=== PATIENT | female | born 1940 | race African-American/Black ===

== ENCOUNTER 2018-11-04 06:22 | Inpatient (IN) ==
[2018-11-04] MEDS ORDERED: diphenhydrAMINE CAP 25 MG CAPSULE PO ONE (09:07)
[2018-11-04] MEDS ORDERED: MAGNESIUM SULF RIDER 2 GM in PREMIX 1 EACH IV PRN (09:07)
[2018-11-04] MEDS ORDERED: ASPIRIN 325 MG TABLET PO ONE (09:07)
[2018-11-04] MEDS ORDERED: DIAZEPAM 5 MG TABLET PO ONE (09:07)
[2018-11-04] MEDS ORDERED: POTASSIUM CHLORIDE RIDER 10 MEQ in PREMIX 1 EACH IV PRN (09:07)
[2018-11-04] MEDS: SODIUM CHLORIDE 0.9% 1,000 ML IV SCH (09:18)
[2018-11-04] MEDS ORDERED: VERAPAMIL 5 MG/2 ML VIAL ONE ×2 (10:57→12:09)
[2018-11-04] MEDS ORDERED: HEPARIN/NACL 0.9% 2 UNITS/ML 1,000 ML IV ONE (10:57)
[2018-11-04] MEDS ORDERED: NITROGLYCERIN DRIP 50 MG/250 ML BOTTLE IV ONE (10:57)
[2018-11-04] MEDS ORDERED: LIDOCAINE 1% 20 ML VIAL ONE (10:57)
[2018-11-04] MEDS ORDERED: HYDROmorphone 2 MG/1 ML VIAL ONE (11:17)
[2018-11-04] MEDS ORDERED: MIDAZOLAM 2 MG/2 ML VIAL ONE (11:17)
[2018-11-04] MEDS ORDERED: ENOXAPARIN 30 MG/0.3 ML SYRINGE ONE (12:09)
[2018-11-04] MEDS ORDERED: ACETAMINOPHEN 325 MG TABLET PO PRN (14:56)
[2018-11-04] MEDS ORDERED: ZALEPLON 5 MG CAPSULE PO PRN (14:56)
[2018-11-04] MEDS ORDERED: BISACODYL 5 MG TABLET PO PRN (14:56)
[2018-11-04] MEDS ORDERED: POTASSIUM CHLORIDE 20 MEQ TABLET PO PRN (14:56)
[2018-11-04] MEDS ORDERED: MAGNESIUM SULF RIDER 4 GM in PREMIX 1 EACH IV PRN (14:56)
[2018-11-04] MEDS ORDERED: ONDANSETRON 4 MG/2 ML VIAL IV PRN (14:56)
[2018-11-04] MEDS ORDERED: HEPARIN DRIP 25,000 UNITS/500 ML PREMIX IV ONE (15:28)
[2018-11-04] MEDS: HEPARIN DRIP 25,000 UNITS/500 ML PREMIX IV SCH (15:45)
[2018-11-04] MEDS: CILOSTAZOL 100 MG TABLET PO SCH (21:42)
[2018-11-04] MEDS: MAGNESIUM CHLORIDE 64 MG TABLET PO SCH (21:43)
[2018-11-04] MEDS: ASCORBIC ACID 500 MG TABLET PO SCH (21:44)
[2018-11-04] MEDS: glipiZIDE 5 MG TABLET PO SCH (21:44)
[2018-11-04 21:47] LABS: PT Patient Result 11.1 SECS
[2018-11-04 22:04] LABS: Partial Thromboplastin Time 46.2 SECS (0-40)
[2018-11-05 05:55] LABS: Basophils % 0.5 % (0.0-0.8); Eosinophils # 0.2 10*3/uL (0.0-0.87); Eosinophils % 2.5 % (0.00-10.9); Hematocrit 26.4 VOL% (35.7-47.0); Hemoglobin 7.9 GM/DL (12.0-16.0); Immature Granulocytes % 0.3 %; Immature Granulocytes Absolute 0.02 #; Lymphocytes # 1.1 10*3/uL (1.4-4.0); Lymphocytes % 17.5 % (21.3-54.2); Mean Corpuscular HGB Conc 29.9 GM/DL (32-36); Mean Corpuscular Volume 95.7 FL (87-102); Mean Platelet Volume 12.8 FL (9.6-12.0); Monocytes % 9.4 % (1.7-12.7); Neutrophils % 69.8 % (38.7-73.9); Platelet Count 230 T/CUMM (130-400); Red Blood Count 2.76 MC/CUMM (3.8-5.5); Red Cell Distribution Width 14.7 % (9.3-17.3); White Blood Count 6.1 T/CUMM (4-12)
[2018-11-05 06:03] LABS: PT Patient Result 10.9 SECS
[2018-11-05 06:15] LABS: Partial Thromboplastin Time 59.9 SECS (0-40)
[2018-11-05 06:46] LABS: Albumin 2.9 G/DL (3.4-5.0); Bilirubin,Total 0.4 MG/DL (0.2-1.0); Calcium 8.8 MG/DL (8.5-10.1); Osmolality,Calculated 287.8 MOS/KG (273-304); Risk Ratio 1.79; Total Protein 6.4 G/DL (6.4-8.3)
[2018-11-05] MEDS: metFORMIN 500 MG TABLET PO SCH ×3 (08:52→17:35)
[2018-11-05] MEDS: CHOLECALCIFEROL 400 UNIT TABLET PO SCH (08:52)
[2018-11-05] MEDS: MAGNESIUM CHLORIDE 64 MG TABLET PO SCH ×3 (08:52→20:50)
[2018-11-05] MEDS: ASPIRIN EC 81 MG TABLET PO SCH (08:52)
[2018-11-05] MEDS: sitaGLIPtin 100 MG TABLET PO SCH (08:53)
[2018-11-05] MEDS: CALCIUM (CARBONATE) 600 MG TABLET PO SCH (08:53)
[2018-11-05] MEDS: ROSUVASTATIN 10 MG TABLET PO SCH (08:53)
[2018-11-05] MEDS: ASCORBIC ACID 500 MG TABLET PO SCH ×2 (08:53→20:50)
[2018-11-05] MEDS: FERROUS SULFATE 325 MG TABLET PO SCH (08:53)
[2018-11-05] MEDS: LISINOPRIL 20 MG TABLET PO SCH (08:53)
[2018-11-05] MEDS: PANTOPRAZOLE 40 MG TABLET PO SCH (08:54)
[2018-11-05] MEDS: glipiZIDE 5 MG TABLET PO SCH ×2 (08:54→20:49)
[2018-11-05] MEDS: CILOSTAZOL 100 MG TABLET PO SCH ×2 (08:54→20:50)
[2018-11-05] MEDS: POTASSIUM CHLORIDE 10 MEQ TABLET PO SCH (08:54)
[2018-11-05] MEDS ORDERED: NON-FORMULARY MEDICATION (Omeprazole 40 MG) PO SCH (09:00)
[2018-11-05] MEDS ORDERED: amLODIPine 5 MG TABLET PO SCH (09:00)
[2018-11-05] MEDS ORDERED: METOPROLOL SUCCINATE XL 100 MG TABLET PO SCH (09:00)
[2018-11-05 10:24] LABS: PT Patient Result 10.7 SECS
[2018-11-05 10:34] LABS: Partial Thromboplastin Time 70.7 SECS (0-40)
[2018-11-05] MEDS ORDERED: MAGNESIUM SULF INJ 3 GM in SODIUM CHLORIDE 0.9% 100 ML IV ONE (11:33)
[2018-11-05] MEDS: SODIUM CHLORIDE 0.9% 1,000 ML IV SCH (13:17)
[2018-11-05 15:55] LABS: Hematocrit 29.2 VOL% (35.7-47.0); Hemoglobin 8.8 GM/DL (12.0-16.0)
[2018-11-05] MEDS: INSULIN LISPRO 100 UNIT/ML SUBCUT SCH ×2 (17:29→20:50)
[2018-11-05] MEDS: HEPARIN DRIP 25,000 UNITS/500 ML PREMIX IV SCH (17:34)
[2018-11-05] MEDS: CARVEDILOL 25 MG TABLET PO SCH (20:49)
[2018-11-06 04:37] LABS: Basophils % 0.3 % (0.0-0.8); Eosinophils # 0.2 10*3/uL (0.0-0.87); Eosinophils % 2.7 % (0.00-10.9); Hematocrit 26.1 VOL% (35.7-47.0); Immature Granulocytes % 0.3 %; Immature Granulocytes Absolute 0.02 #; Lymphocytes # 0.8 10*3/uL (1.4-4.0); Lymphocytes % 12.2 % (21.3-54.2); Mean Corpuscular HGB Conc 30.7 GM/DL (32-36); Mean Corpuscular Volume 94.2 FL (87-102); Mean Platelet Volume 13.3 FL (9.6-12.0); Monocytes % 11.3 % (1.7-12.7); Neutrophils % 73.2 % (38.7-73.9); Platelet Count 243 T/CUMM (130-400); Red Blood Count 2.77 MC/CUMM (3.8-5.5); Red Cell Distribution Width 14.8 % (9.3-17.3); White Blood Count 6.6 T/CUMM (4-12)
[2018-11-06 04:57] LABS: Calcium 8.7 MG/DL (8.5-10.1)
[2018-11-06] MEDS: CARVEDILOL 25 MG TABLET PO SCH ×2 (09:06→21:40)
[2018-11-06] MEDS: POTASSIUM CHLORIDE 10 MEQ TABLET PO SCH (09:06)
[2018-11-06] MEDS: MAGNESIUM CHLORIDE 64 MG TABLET PO SCH ×3 (09:06→21:41)
[2018-11-06] MEDS: metFORMIN 500 MG TABLET PO SCH ×2 (09:06→15:59)
[2018-11-06] MEDS: LISINOPRIL 20 MG TABLET PO SCH (09:07)
[2018-11-06] MEDS: CILOSTAZOL 100 MG TABLET PO SCH (09:07)
[2018-11-06] MEDS: ASPIRIN EC 81 MG TABLET PO SCH (09:07)
[2018-11-06] MEDS: ROSUVASTATIN 10 MG TABLET PO SCH (09:07)
[2018-11-06] MEDS: ASCORBIC ACID 500 MG TABLET PO SCH ×2 (09:07→21:38)
[2018-11-06] MEDS: CHOLECALCIFEROL 400 UNIT TABLET PO SCH (09:07)
[2018-11-06] MEDS: CALCIUM (CARBONATE) 600 MG TABLET PO SCH (09:07)
[2018-11-06] MEDS: glipiZIDE 5 MG TABLET PO SCH ×2 (09:08→21:38)
[2018-11-06] MEDS: sitaGLIPtin 100 MG TABLET PO SCH (09:08)
[2018-11-06] MEDS: FERROUS SULFATE 325 MG TABLET PO SCH (09:08)
[2018-11-06] MEDS: PANTOPRAZOLE 40 MG TABLET PO SCH (09:08)
[2018-11-06] MEDS: INSULIN LISPRO 100 UNIT/ML SUBCUT SCH ×5 (09:08→21:44)
[2018-11-06] MEDS: SODIUM CHLORIDE 0.9% 1,000 ML IV SCH (16:26)
[2018-11-06] MEDS: HEPARIN DRIP 25,000 UNITS/500 ML PREMIX IV SCH (18:37)
[2018-11-06] MEDS: APIXABAN 2.5 MG TABLET PO SCH (21:41)
[2018-11-07 05:01] LABS: Basophils % 0.2 % (0.0-0.8); Eosinophils # 0.2 10*3/uL (0.0-0.87); Eosinophils % 2.6 % (0.00-10.9); Hematocrit 25.8 VOL% (35.7-47.0); Hemoglobin 7.8 GM/DL (12.0-16.0); Immature Granulocytes % 0.5 %; Immature Granulocytes Absolute 0.03 #; Lymphocytes # 0.8 10*3/uL (1.4-4.0); Mean Corpuscular HGB Conc 30.2 GM/DL (32-36); Mean Corpuscular Volume 94.9 FL (87-102); Mean Platelet Volume 12.6 FL (9.6-12.0); Monocytes % 12.5 % (1.7-12.7); Neutrophils % 71.2 % (38.7-73.9); Platelet Count 222 T/CUMM (130-400); Red Blood Count 2.72 MC/CUMM (3.8-5.5); Red Cell Distribution Width 14.8 % (9.3-17.3); White Blood Count 5.9 T/CUMM (4-12)
[2018-11-07 05:38] LABS: Calcium 8.8 MG/DL (8.5-10.1); Osmolality,Calculated 282.3 MOS/KG (273-304)
[2018-11-07] MEDS: MAGNESIUM SULF RIDER 2 GM in PREMIX 1 EACH IV PRN (06:15)
[2018-11-07] MEDS: INSULIN LISPRO 100 UNIT/ML SUBCUT SCH ×4 (07:50→20:51)
[2018-11-07] MEDS: ROSUVASTATIN 10 MG TABLET PO SCH (08:11)
[2018-11-07] MEDS: MAGNESIUM CHLORIDE 64 MG TABLET PO SCH ×3 (08:12→20:50)
[2018-11-07] MEDS: ASCORBIC ACID 500 MG TABLET PO SCH ×2 (08:12→20:50)
[2018-11-07] MEDS: glipiZIDE 5 MG TABLET PO SCH ×2 (08:12→20:49)
[2018-11-07] MEDS: PANTOPRAZOLE 40 MG TABLET PO SCH (08:12)
[2018-11-07] MEDS: APIXABAN 2.5 MG TABLET PO SCH ×2 (08:12→20:50)
[2018-11-07] MEDS: CALCIUM (CARBONATE) 600 MG TABLET PO SCH (08:12)
[2018-11-07] MEDS: metFORMIN 500 MG TABLET PO SCH ×2 (08:12→16:47)
[2018-11-07] MEDS: CLOPIDOGREL 75 MG TABLET PO SCH (08:12)
[2018-11-07] MEDS: sitaGLIPtin 100 MG TABLET PO SCH (08:12)
[2018-11-07] MEDS: CARVEDILOL 25 MG TABLET PO SCH ×2 (08:13→20:50)
[2018-11-07] MEDS: LISINOPRIL 20 MG TABLET PO SCH (08:13)
[2018-11-07] MEDS: ASPIRIN EC 81 MG TABLET PO SCH (08:13)
[2018-11-07] MEDS: CHOLECALCIFEROL 400 UNIT TABLET PO SCH (08:13)
[2018-11-07] MEDS: POTASSIUM CHLORIDE 10 MEQ TABLET PO SCH (08:13)
[2018-11-07] MEDS: FERROUS SULFATE 325 MG TABLET PO SCH (08:13)
[2018-11-07] MEDS: SODIUM CHLORIDE 0.9% 1,000 ML IV SCH (11:34)
[2018-11-07] MEDS ORDERED: SODIUM CHLORIDE 0.9% 1,000 ML IV PRN (13:40)
[2018-11-07 14:01] LABS: % Iron Saturation 14.5 % (18-50); Ferritin 28.1 ng/ml (8-252)
[2018-11-07] MEDS ORDERED: LACTULOSE 20 GM/30 ML UDCUP PO ONE (21:00)
[2018-11-08 04:49] LABS: Basophils % 0.3 % (0.0-0.8); Eosinophils # 0.2 10*3/uL (0.0-0.87); Eosinophils % 2.6 % (0.00-10.9); Hematocrit 33.3 VOL% (35.7-47.0); Hemoglobin 10.6 GM/DL (12.0-16.0); Immature Granulocytes % 0.1 %; Immature Granulocytes Absolute 0.01 #; Lymphocytes # 0.8 10*3/uL (1.4-4.0); Lymphocytes % 11.3 % (21.3-54.2); Mean Corpuscular HGB Conc 31.8 GM/DL (32-36); Mean Corpuscular Volume 88.6 FL (87-102); Monocytes % 11.8 % (1.7-12.7); Neutrophils % 73.9 % (38.7-73.9); Platelet Count 219 T/CUMM (130-400); Red Blood Count 3.76 MC/CUMM (3.8-5.5); Red Cell Distribution Width 17.9 % (9.3-17.3); White Blood Count 7.2 T/CUMM (4-12)
[2018-11-08 05:05] LABS: Calcium 9.2 MG/DL (8.5-10.1); Osmolality,Calculated 281.1 MOS/KG (273-304)
[2018-11-08] MEDS: MAGNESIUM SULF RIDER 2 GM in PREMIX 1 EACH IV PRN (06:16)
[2018-11-08] MEDS ORDERED: MAGNESIUM SULF RIDER 2 GM in PREMIX 1 EACH IV ONE (08:04)
[2018-11-08] MEDS: INSULIN LISPRO 100 UNIT/ML SUBCUT SCH ×2 (08:17→12:41)
[2018-11-08] MEDS: MAGNESIUM CHLORIDE 64 MG TABLET PO SCH (09:06)
[2018-11-08] MEDS: metFORMIN 500 MG TABLET PO SCH (09:07)
[2018-11-08] MEDS: LISINOPRIL 20 MG TABLET PO SCH (09:07)
[2018-11-08] MEDS: CHOLECALCIFEROL 400 UNIT TABLET PO SCH (09:07)
[2018-11-08] MEDS: POTASSIUM CHLORIDE 10 MEQ TABLET PO SCH (09:08)
[2018-11-08] MEDS: ASPIRIN EC 81 MG TABLET PO SCH (09:08)
[2018-11-08] MEDS: glipiZIDE 5 MG TABLET PO SCH (09:09)
[2018-11-08] MEDS: sitaGLIPtin 100 MG TABLET PO SCH (09:09)
[2018-11-08] MEDS: PANTOPRAZOLE 40 MG TABLET PO SCH (09:09)
[2018-11-08] MEDS: CLOPIDOGREL 75 MG TABLET PO SCH (09:09)
[2018-11-08] MEDS: APIXABAN 2.5 MG TABLET PO SCH (09:10)
[2018-11-08] MEDS: ROSUVASTATIN 10 MG TABLET PO SCH (09:15)
[2018-11-08] MEDS: CALCIUM (CARBONATE) 600 MG TABLET PO SCH (09:16)
[2018-11-08] MEDS: FERROUS SULFATE 325 MG TABLET PO SCH (09:16)
[2018-11-08] MEDS: CARVEDILOL 25 MG TABLET PO SCH (09:17)
[2018-11-08] MEDS: ASCORBIC ACID 500 MG TABLET PO SCH (09:17)
[2018-11-08] MEDS: SODIUM CHLORIDE 0.9% 1,000 ML IV SCH (13:18)
[2018-11-08 13:35] VITALS: BP 154/81
[2018-11-11] MEDS ORDERED: ERGOCALCIFEROL 50,000 UNIT CAPSULE PO SCH (09:00)
== END 2018-11-08 14:33 | DRG 65 ==
LOC: N.CL 06:22 → N.TELES 17:44
PROVIDERS: ADMIT Internal Medicine Cardiovascular Disease; ATTEND Internal Medicine Cardiovascular Disease